=== PATIENT | male | born 1970 | race African-American/Black ===

== ENCOUNTER 2020-10-21 12:54 | Emergency (ER) | payer MEDICAID, SELFPAY ==
[2020-10-21 12:56] VITALS: BP 133/84; PULSE 62; RESP 18; TEMP 36.8; O2SAT 98; BMI 21.4
--- NOTE | 2020-10-21 13:00 | RAD_ITS ---
STUDY: X-RAY - RIGHT WRIST REASON FOR EXAM: Male, 50 years old. Pain following injury. TECHNIQUE: 3 view(s) of the wrist were obtained. COMPARISON: None. FINDINGS: Normal visualized distal radius and ulna. Normal radiocarpal articulation. Normal distal radioulnar articulation. Normal carpal bones. Normal carpal articulations. Normal carpometacarpal articulation of the thumb. Normal second through fifth carpometacarpal articulations. Normal visualized metacarpal bones. The soft tissue structures are unremarkable. RAD/Wrist min 3 Views IMPRESSION: Normal x-ray examination of the wrist. Electronically Signed: Ryland Pena MD at 14:02 EDT , Service support ,
--- NOTE | 2020-10-21 13:54 | EX.ED.UPPERE ---
HPI History of Present Illness Chief Complaint: Upper Extremity Injury Informant: patient Occured/Mechanism Mechanism/Context: Yes fall Comment: tripped and FOOSH Onset/Context/Timing Onset: Today Context: Sudden Onset Timing: Continuous Quality of Pain: Aching Location: R wrist Current Severity: Moderate Maximum Severity: Moderate Worsened by: movement Relieved by: remaining still Associated Symptoms Associated Symptoms: Negative for Parasthesia, Weakness and Loss of Funtion Narrative Narrative: Patient states he accidentally tripped and fell, landing on outstretched right hand, complaining of pain in his right lateral wrist. He denies any other injury. [id number]. States the pain radiates up toward his elbow. He can move it okay though. PFSH PFSH no medical history Home Medications NK 10/21/20 [History Last Taken Unknown] Allergy/AdvReac Type Severity Reaction Status Date / Time No Known Allergies Allergy Verified 10/21/20 12:58 Social History Smoking Status: Current every day smoker tobacco type: cigarettes ROS ROS ED Constitutional Constitutional ED: Denies chills or fever(s) Musculoskeletal Musculoskeletal: Reports extremity pain; Denies neck pain Integumentary Denies Abrasions, rash or wounds Neurologic Neurologic: Denies paresthesias or weakness EXAM Physical Exam Const Vital Signs: 10/21/20 12:56 Temperature 98.3 F Temperature Source Temporal Pulse Rate 62 Respiratory Rate 18 Blood Pressure 133/84 H Blood Pressure Mean 100 Pulse Ox 98 Oxygen Delivery Method Room Air Positive well nourished and well developed General Appearance ED: well developed and NAD Neck full ROM and supple Back/Spine normal ROM and normal to inspection Extremity Extremity Narrative: Limited flexion/extension of his right wrist, but he is able to do so. No deformities. Tender distal lateral ulna, less tender distal radius. Nontender snuffbox and the rest of the hand/elbow/shoulder. Able to pronate and supinate without any difficulty. Neuro oriented x3, no focal motor deficits and no sensory deficits noted Sensorium / Orientation: alert Psych mental status grossly normal and thought process normal Skin no wounds Rashes: no rashes MDM MDM MDM Narrative Medical decision making narrative: On my interpretation, 3 view x-rays of the right wrist shows a minor avulsion fracture off of the distal ulna and no other radiographic fractures noted. This should be a nonoperative fracture. He was placed in a Velcro wrist splint given appropriate instructions and follow-up with orthopedics. [id number]-[id number] analgesics and ice as needed I do not think he needs any narcotics since he is really not in a lot of pain and was texting on his cell phone while waiting in the waiting room. Discharge Plan Triage Chief Complaint: Upper Extremity Injury ED Provider: Sudheer Borrego Dx/Rx/DC Orders Clinical Impression: Closed fracture of distal end of right ulna Instructions: ED Fracture, Wrist, General Prescriptions: No Action NK RF: 0 Referrals: Alexi Cramer DO [STAFF PHYSICIAN] - 10-14 Days if not better Disposition Disposition: Home, self care
== END 2020-10-21 14:27 | disposition home or self-care (01) ==
LOC: ED 14:25
PROVIDERS: Emergency Provider Emergency Medicine
DX: S52.601A Unspecified fracture of lower end of right ulna, initial encounter for closed fracture (principal); F17.210 Nicotine dependence, cigarettes, uncomplicated; W01.0XXA Fall on same level from slipping, tripping and stumbling without subsequent striking against object, initial encounter
CPT/HCPCS: 73110; 99283